=== PATIENT | female | born 1970 | race Caucasian/White ===

== ENCOUNTER → 2018-07-14 | Outpatient (CLI) | payer BC ==
[~2018-07-14] MED LIST: CETI10TA17 PO; FISH1CAP15 PO; LEVO50TA6 PO; LIOT5TAB3 PO; MULT-178 PO; NORG1TAB14 PO; ONDN4T PO; OXYC1TAB87 PO
--- NOTE | 2018-07-14 10:01 | Diagnostic Imaging Report ---
INDICATION: Routine screening. COMPARISON: 06/17/2017 and 05/07/2016. TECHNIQUE: 2D and 3D bilateral screening mammography was performed with CAD. FINDINGS: Both breasts are heterogeneously dense, limiting the sensitivity of mammography. Multiple lobulated masses in both breasts appear to be stable and consistent with benign etiologies. No new mass or malignant appearing microcalcifications are seen. The axillae are unremarkable. IMPRESSION: No mammographic features suspicious for malignancy are identified. ACR BI-RADS Category 2: Benign findings. Result letter will be mailed to the patient. Note: At least 10% of breast cancer is not imaged by mammography. Dictated by: Dictated on workstation # [id number]
== END ==
LOC: RAD 07:17
PROVIDERS: ATTEND Nurse Practitioner Family
DX: Z12.31 Encounter for screening mammogram for malignant neoplasm of breast (principal)
CPT/HCPCS: 77067

== ENCOUNTER → 2018-11-24 | Outpatient (CLI) | payer BC ==
--- NOTE | 2018-11-24 11:53 | Diagnostic Imaging Report ---
PROCEDURE: CT angiography of the abdomen and chest with and without contrast. TECHNIQUE: After intravenous administration of contrast, thin section axial CT angiography of the abdomen and chest were obtained. Multiple MIP reformats were provided. Auto Exposure Controls were utilized during the CT exam to meet ALARA standards for radiation dose reduction. INDICATION: Family history of aortic dissection. COMPARISON: No prior studies are available for comparison. FINDINGS: CT angiogram chest: There appears to be a nodule in the inferior pole of the left lobe of the thyroid measuring approximately 2 cm. Dedicated thyroid ultrasound would be useful for further evaluation. The thoracic aorta is normal in caliber. No dissection is identified. Pulmonary arteries are unremarkable. No pericardial or pleural fluid is detected. No axillary, hilar, or mediastinal lymphadenopathy is detected. Linear parenchymal density in the left upper lobe is noted, suggestive of scarring or subsegmental atelectasis. No infiltrates, nodules, or masses are seen. IMPRESSION: 1. No evidence of thoracic aortic aneurysm or dissection. 2. Left upper lobe atelectasis/scarring. 3. 2 cm left thyroid nodule. Dedicated thyroid ultrasound would be useful for further evaluation. CT abdomen: The abdominal aorta is normal in caliber. No dissection is seen. No focal liver mass is detected. The gallbladder appears to be surgically absent. There is no biliary ductal dilatation. The pancreas and spleen are unremarkable. No adrenal mass is detected. Kidneys are unremarkable. There is no lymphadenopathy or ascites. The bowel loops are normal in caliber. IMPRESSION: Unremarkable CT of the abdomen. There is no evidence of abdominal aortic aneurysm or dissection. Dictated by: Dictated on workstation # [id number]
== END ==
LOC: RAD 07:24
PROVIDERS: ATTEND Nurse Practitioner Family
DX: E04.1 Nontoxic single thyroid nodule (principal); Z82.49 Family history of ischemic heart disease and other diseases of the circulatory system
CPT/HCPCS: 71275; 74175

== ENCOUNTER → 2018-12-04 | Outpatient (CLI) | payer BC ==
--- NOTE | 2018-12-04 12:08 | Diagnostic Imaging Report ---
PROCEDURE: US Thyroid. TECHNIQUE: Multiple real-time grayscale images were obtained of the thyroid in various projections. INDICATION: Thyroid nodule. FINDINGS: Right lobe of thyroid measures 4.7 x 1.5 x 0.7 cm. Left lobe measures 5.8 x 1.5 x 1.4 cm. There is a complex heterogeneous mass in the inferior aspect left lobe of thyroid with some internal calcifications. This measures 2.1 x 1.5 x 2.1. No other discrete thyroid nodules are appreciated. IMPRESSION: 2.1 cm complex mass with calcifications in left lobe of thyroid. Further evaluation with fine-needle aspiration is recommended to exclude malignancy. Dictated by: Dictated on workstation # [id number]
== END ==
LOC: RAD 08:59
PROVIDERS: ATTEND Nurse Practitioner Family
DX: E04.1 Nontoxic single thyroid nodule (principal); E07.89 Other specified disorders of thyroid
CPT/HCPCS: 76536

== ENCOUNTER → 2019-08-06 | Outpatient (CLI) | payer BC ==
[~2019-08-06] MED LIST changes: +LIOT5TAB PO; -LIOT5TAB3 PO
--- NOTE | 2019-08-06 13:15 | Diagnostic Imaging Report ---
Indication: Routine screening. Comparison is made with prior mammogram from 07/14/2018 and 06/17/2017. 2-D and 3-D bilateral screening mammography was performed with CAD. Both breasts are heterogeneously dense, limiting the sensitivity of mammography. Circumscribed lobulated masses in both breasts appear to be stable. No new mass or malignant appearing microcalcifications are seen. Axillae are unremarkable. IMPRESSION: BI-RADS Category 2 No mammographic features suspicious for malignancy are identified. ACR BI-RADS Category 2: Benign findings. Result letter will be mailed to the patient. Note: At least 10% of breast cancer is not imaged by mammography. Dictated by: Dictated on workstation # [id number]
== END ==
LOC: RAD 09:43
PROVIDERS: ATTEND Nurse Practitioner Family
DX: Z12.31 Encounter for screening mammogram for malignant neoplasm of breast (principal)
CPT/HCPCS: 77067

== ENCOUNTER → 2019-11-15 | Outpatient (CLI) | payer BC ==
[~2019-11-15] MED LIST changes: -LIOT5TAB PO; +LIOT5TAB10 PO
== END ==
LOC: LABNPT 14:40
PROVIDERS: ATTEND Family Medicine
DX: R05 Cough (principal); R50.9 Fever, unspecified
CPT/HCPCS: 87430; 87635; 87804

== ENCOUNTER → 2020-08-07 | Outpatient (CLI) | payer BC ==
--- NOTE | 2020-08-07 12:42 | Diagnostic Imaging Report ---
INDICATION: Routine screening. COMPARISON is made with prior mammograms 08/06/2019 and 07/14/2018. 2-D and 3-D bilateral screening mammography was performed with CAD. Both breasts are heterogeneously dense, limiting the sensitivity of mammography. Numerous circumscribed masses are again noted in both breasts, consistent with benign etiology. No spiculated mass or malignant appearing microcalcifications are seen. Axillae are unremarkable. IMPRESSION: BI-RADS Category 2. No mammographic features suspicious for malignancy are identified. ACR BI-RADS Category 2: Benign findings. Result letter will be mailed to the patient. Note: At least 10% of breast cancer is not imaged by mammography. Dictated by: Dictated on workstation # [id number]
== END ==
LOC: RAD 07:50
PROVIDERS: ATTEND Nurse Practitioner Family
DX: Z12.31 Encounter for screening mammogram for malignant neoplasm of breast (principal)
CPT/HCPCS: 77063; 77067

== ENCOUNTER → 2021-08-14 | Outpatient (CLI) | payer BC ==
--- NOTE | 2021-08-14 10:14 | Diagnostic Imaging Report ---
EXAMINATION: Digital mammogram bilateral screening with CAD. INDICATION: Screening. COMPARISON: This study was compared to the prior exams of 08/07/2020, 08/06/2019, and 07/14/2018. PERSONAL HISTORY: At this time, there are no current complaints. FINDINGS: The fibroglandular tissue in both breasts is heterogeneously dense. This does limit the sensitivity of this exam. The small benign-appearing nodular asymmetries in both breasts seem previously are again evident and not significantly different. There also appears to be architectural distortion in the upper outer aspect of the left breast. This finding is similar to the prior exam as well and is most likely related to the patient's prior left breast biopsy. There is no primary or secondary sign of malignancy noted. IMPRESSION: There is no evidence for malignancy. ACR BI-RADS Category 1: Negative. Result letter will be mailed to the patient. Note: At least 10% of breast cancer is not imaged by mammography. Dictated by: Dictated on workstation # [id number]
== END ==
LOC: RAD 07:30
PROVIDERS: ATTEND Family Medicine
DX: Z12.31 Encounter for screening mammogram for malignant neoplasm of breast (principal)
CPT/HCPCS: 77063; 77067

== ENCOUNTER → 2022-08-23 | Outpatient (CLI) | payer BC ==
--- NOTE | 2022-08-23 12:26 | Diagnostic Imaging Report ---
INDICATION: Routine screening. COMPARISON: 08/14/2021 and 08/07/2020. TECHNIQUE: 2D and 3D bilateral screening mammography was performed with CAD. FINDINGS: Both breasts are heterogeneously dense, limiting the sensitivity of mammography. The circumscribed nodular densities in both breasts appear stable. Biopsy changes in the left breast are stable. No new mass or malignant-appearing microcalcifications are seen. The axillae are unremarkable. IMPRESSION: No mammographic features suspicious for malignancy are identified. ACR BI-RADS Category 2: Benign findings. Result letter will be mailed to the patient. Note: At least 10% of breast cancer is not imaged by mammography. Dictated by: Dictated on workstation # [id number]
== END ==
LOC: RAD 08:37
PROVIDERS: ATTEND Nurse Practitioner Family
DX: Z12.31 Encounter for screening mammogram for malignant neoplasm of breast (principal)
CPT/HCPCS: 77063; 77067